=== PATIENT | female | born 1965 ===

== ENCOUNTER 2018-07-20 11:04 | Inpatient (IN) | payer OTHER ==
[~2018-07-20] VITALS: Ht 160 cm; Wt 65.8 kg
[2018-07-20] MEDS ORDERED: SYNTHROID50 MCG (11:44)
== END 2018-07-28 23:03 | disposition left against medical advice (07) | DRG 373 ==
LOC: ER 11:04 → SEC-K 21:45 → MEDI 07-21 17:44
PROC: B246ZZZ Ultrasonography of Right and Left Heart (ICD-10-PCS; 2018-07-20)
PROC: BW28ZZZ Computerized Tomography (CT Scan) of Head (ICD-10-PCS; 2018-07-20)
PROC: BW25Y0Z Computerized Tomography (CT Scan) of Chest, Abdomen and Pelvis using Other Contrast, Unenhanced and Enhanced (ICD-10-PCS; 2018-07-21)
PROC: 07DR3ZX Extraction of Iliac Bone Marrow, Percutaneous Approach, Diagnostic (ICD-10-PCS; principal; 2018-07-25)
PROC: CW1NLZZ Planar Nuclear Medicine Imaging of Whole Body using Gallium 67 (Ga-67) (ICD-10-PCS; 2018-07-26)
PROC: 09JK8ZZ Inspection of Nasal Mucosa and Soft Tissue, Via Natural or Artificial Opening Endoscopic (ICD-10-PCS; 2018-07-27)
PROC: B922ZZZ Computerized Tomography (CT Scan) of Paranasal Sinuses (ICD-10-PCS; 2018-07-27)
PROC: B54PZZZ Ultrasonography of Bilateral Upper Extremity Veins (ICD-10-PCS; 2018-07-28)
DX: A07.8 Other specified protozoal intestinal diseases (principal); R31.29 Other microscopic hematuria; J32.0 Chronic maxillary sinusitis; E03.8 Other specified hypothyroidism; I80.8 Phlebitis and thrombophlebitis of other sites